=== PATIENT | female | born 1980 ===

== ENCOUNTER 2021-06-12 19:47 | Inpatient (IN) ==
[2021-06-12 21:55] LABS: ABS Basophils 0.1 10^3/ul (0-0.2); ABS Eosinophils 0.1 10^3/ul (0-0.6); ABS Lymphocytes 2.1 10^3/ul (1.0-4.8); ABS Monocytes 0.6 10^3/ul (0-0.8); ABS Neutrophils 2.7 10^3/ul (1.5-7.7); Eosinophil % 2.3 %; Hematocrit 30 % (35-47); Hemoglobin 9.5 g/dL (12.0-16.0); Mean Corpuscular HGB Conc 32 g/dL (31-36); Mean Corpuscular Hemoglobin 27 pg (27-31); Mean Corpuscular Volume 83 fL (80-97); Mean Platelet Volume 8.6 fL (7.4-10.4); Platelet Count 318 10^3/uL (150-450); Red Blood Count 3.59 10^6 /uL (3.70-4.87); Red Cell Distribution Width 16 % (10-15); White Blood Count 5.6 10^3/uL (3.5-10.8)
[2021-06-12 22:12] LABS: Urine Benzodiazepine Screen None Detected (None Detect); Urine Cannabinoids Screen None Detected (None Detect); Urine Opiates Screen None Detected (None Detect)
[2021-06-12 22:13] LABS: ALT 11 U/L (7-52); AST 16 U/L (13-39); Albumin 4.3 g/dL (3.2-5.2); Albumin/Globulin Ratio 1.5 (1-3); Alkaline Phosphatase 40 U/L (35-149); Anion Gap 6 mmol/L (2-11); Blood Urea Nitrogen 13 mg/dL (6-24); CO2 Carbon Dioxide 28 mmol/L (22-32); Calcium 9.1 mg/dL (8.6-10.3); Chloride 105 mmol/L (101-111); Globulin 2.8 g/dL (2-4); Glucose 84 mg/dL (70-100); Potassium 4.1 mmol/L (3.5-5.0); Sodium 139 mmol/L (135-145); Total Protein 7.1 g/dL (6.4-8.9)
[2021-06-12 22:14] LABS: Acetaminophen < 15 mcg/mL; Alcohol, S < 13 mg/dL (<13); Salicylate < 2.50 mg/dL (<30)
[2021-06-12 22:20] LABS: HCG Pregnancy < 0.60 mIU/mL
[2021-06-12 22:27] LABS: TSH Ultra Thyroid Stim Horm 0.53 mcIU/mL (0.34-5.60)
[2021-06-13 01:34] LABS: Rapid COVID-19 Molecular Undetected (Undetected)
[2021-06-13] MEDS ORDERED: Al Hydrox/Mg Hydrox/Simet LIQ 30 ML UDC PO PRN (02:12)
[2021-06-13] MEDS: Vitamin THERAPEUTIC TAB PO SCH (09:04)
[2021-06-13] MEDS: Nicotine PATCH 21 MG/24 HR PATCH TRANSDERM SCH (09:05)
[2021-06-14] MEDS: Nicotine PATCH 21 MG/24 HR PATCH TRANSDERM SCH (11:16)
[2021-06-14] MEDS: Vitamin THERAPEUTIC TAB PO SCH (11:16)
[2021-06-14] MEDS: Nicotine GUM 2MG FRUIT FLAVOR PO PRN ×2 (13:14→20:33)
[2021-06-15] MEDS: Nicotine PATCH 21 MG/24 HR PATCH TRANSDERM SCH (07:54)
[2021-06-15] MEDS: Vitamin THERAPEUTIC TAB PO SCH (07:54)
[2021-06-16] MEDS: Nicotine PATCH 21 MG/24 HR PATCH TRANSDERM SCH ×2 (07:57→10:05)
[2021-06-16] MEDS: Vitamin THERAPEUTIC TAB PO SCH (07:58)
[2021-06-17 09:32] VITALS: BP 110/63
[2021-06-17] MEDS: Vitamin THERAPEUTIC TAB PO SCH (11:16)
[2021-06-17] MEDS: Nicotine PATCH 21 MG/24 HR PATCH TRANSDERM SCH (11:16)
== END 2021-06-17 17:10 | disposition home or self-care (01) | DRG 750 ==
LOC: ED 19:47 → BSU 06-13 02:05
PROVIDERS: ADMIT Psychiatry & Neurology Psychiatry; ATTEND Psychiatry & Neurology Psychiatry